=== PATIENT | male | born 1985 | race Caucasian/White ===

== ENCOUNTER 2016-12-16 17:52 | Emergency (ER) | payer MEDICAID ==
[2016-12-16 19:55] VITALS: BP 130/88
== END 2016-12-16 19:55 | disposition home or self-care (01) ==
LOC: ED 17:52
DX: S05.01XA Injury of conjunctiva and corneal abrasion without foreign body, right eye, initial encounter (principal); X58.XXXA Exposure to other specified factors, initial encounter; Y93.89 Activity, other specified; Y92.89 Other specified places as the place of occurrence of the external cause; Y99.8 Other external cause status
CPT/HCPCS: J7040; V2632